=== PATIENT | female | born 1940 | race Caucasian/White ===

== ENCOUNTER 2017-04-27 10:30 | Inpatient (IN) | payer OTHER ==
[~2017-04-27] VITALS: Ht 160 cm; Wt 67.6 kg
[2017-04-27] MEDS ORDERED: METOPROLOL TART25 MG PO (12:50)
[2017-04-27] MEDS ORDERED: ATORVASTATIN CA10 MG PO (12:50)
[2017-04-27] MEDS ORDERED: SYNTHROID50 MCG PO (12:51)
[2017-04-27] MEDS ORDERED: ERGOCALCIF50000 UNIT PO (12:51)
[2017-04-27] MEDS ORDERED: TYLENOL REGULA325 MG PO (12:52)
[2017-04-27] MEDS ORDERED: LO-DOSE ASPIRIN81 M1 PO (12:52)
[2017-04-27 19:58] VITALS: BP 186/86
[2017-04-27 20:16] VITALS: BP 186/86
[2017-04-27 23:40] VITALS: BP 114/56
[2017-04-28 04:23] VITALS: BP 132/68
[2017-04-28 08:00] VITALS: BP 168/79
[2017-04-28 09:12] LABS: HEMATOCRIT 41.8 % (36.0-46.0); MCH 30.7 PG (29.0-34.0); MCHC 34.2 G/DL (30.0-36.0); MCV 89.7 FL (83-99); MEAN PLAT.VOLUME 10.6 uM^3 (9.5-12.4); PLATELET COUNT 411 K/uL (156-360); RBC DIS.WIDTH-CV 13.9 % (11.8-14.6); RED BLOOD COUNT 4.66 M/uL (3.80-5.20); WHITE BLOOD COUNT 18.2 K/uL (4.1-10.2)
[2017-04-28 09:34] LABS: ANION GAP 13 MEQ/L (2-14); CHLORIDE 100 MEQ/L (99-109); GFR ESTIMATE (CALCULATED) 46 mL/min/; GLUCOSE 128 mg/dL (70-99); POTASSIUM 4.1 MEQ/L (3.7-5.4); SAMPLE HEMOLYSIS CHECK 0; SAMPLE ICTERIC CHECK 0; SAMPLE LIPEMIA CHECK 0; SODIUM 140 MEQ/L (136-147); UREA NITROGEN (BUN) 34 mg/dL (9-23)
[2017-04-28] MEDS ORDERED: AMLODIPINE BESYL5 MG PO (10:44)
[2017-04-28 11:42] VITALS: BP 134/62
== END 2017-04-28 12:31 | disposition home or self-care (01) | DRG 305 ==
LOC: EME 10:30 → EDOF 11:38 → ENRESERV 11:51 → CANRESERV 13:57 → ENRESERV 15:01 → 3EAST 19:52
PROVIDERS: Internal Medicine
DX: I10 Essential (primary) hypertension (principal); D32.9 Benign neoplasm of meninges, unspecified; H53.8 Other visual disturbances; E03.9 Hypothyroidism, unspecified; G43.909 Migraine, unspecified, not intractable, without status migrainosus; R07.89 Other chest pain; R53.83 Other fatigue; R55 Syncope and collapse; Z80.51 Family history of malignant neoplasm of kidney; Z82.49 Family history of ischemic heart disease and other diseases of the circulatory system
CPT/HCPCS: 70553; 80048; 85027; 99281; 99285; J1100; S0028